=== PATIENT | female | born 1945 | race Caucasian/White ===

== ENCOUNTER 2023-12-01 08:06 | Outpatient (CLI) | payer MEDICARE, OTHER ==
[2023-12-01] MEDS ORDERED: Regadenoson 0.4 MG/5 ML SYRINGE ONE (09:48)
== END 2023-12-01 08:07 | disposition home or self-care (01) ==
LOC: NM 08:06
DX: I48.19 Other persistent atrial fibrillation (principal)
CPT/HCPCS: 78452; 93017; A9502; J2785 ×2